=== PATIENT | male | born 1945 | race Caucasian/White ===

== ENCOUNTER → 2017-10-25 | Outpatient (CLI) | payer MEDICARE, OTHER | END | disposition home or self-care (01) | LOC: PCVCIMAG 16:08 | DX: G45.9 Transient cerebral ischemic attack, unspecified (principal); I35.0 Nonrheumatic aortic (valve) stenosis; H53.9 Unspecified visual disturbance | CPT/HCPCS: 93880; C8929 ==

== ENCOUNTER → 2017-12-02 | Outpatient (CLI) | payer MEDICARE, OTHER ==
[~2017-12-02] MED LIST: LIDOCAINE 1% Multi-Dose 50 ML VIAL. ONE
--- NOTE | 2017-12-14 08:43 | PCVCINTER ---
APPROVED REPORT Patient Location: Out-Patient Room #: 4 Stress Nurse: Procedure: Insertion of a [employer] bio monitor implantable loop recorder Indications: 71-year-old male patient with cryptic strokes and TIAs with risk factors for atrial fibrillation. Spray Cementer: Norman Story MD [facility] Device: Biotronik bio monitor 2AF serial #[id number] Brief description of procedure: After informed consent was obtained the patient brought to the cardiac catheterization prep and hold. The chest was prepped and draped in usual sterile manner. Utilizing 1% lidocaine with epinephrine the region of incision and device placement was instilled. Using a 11 blade a small incision was then made along the lines of Gisel. Utilizing both sharp and blunt dissection a pocket was developed. The implantable loop recorder was then inserted. Standard technique without complications and difficulties. The site was then closed with 2 simple interrupted nonabsorbable sutures. The skin was closed with 30 absorbable suture in a subcuticular technique. Steri-Strips 4 x 4 OpSite was then utilized. Patient tolerated procedure well there was no blood loss. Conclusion 1. Successful insertion of an implantable loop recorder percutaneously utilizing local anesthetic
== END ==
LOC: PCVCINTER 14:25
PROVIDERS: ATTEND Internal Medicine
DX: Z45.09 Encounter for adjustment and management of other cardiac device (principal); I35.0 Nonrheumatic aortic (valve) stenosis; Z86.73 Personal history of transient ischemic attack (TIA), and cerebral infarction without residual deficits
CPT/HCPCS: 33282; C1764

== ENCOUNTER → 2018-11-22 | Outpatient (CLI) | payer MEDICARE, OTHER | END | disposition home or self-care (01) | LOC: PCVCCLINIC 15:26 | PROVIDERS: ATTEND Internal Medicine | DX: G45.9 Transient cerebral ischemic attack, unspecified (principal); E78.5 Hyperlipidemia, unspecified; K21.9 Gastro-esophageal reflux disease without esophagitis; E78.00 Pure hypercholesterolemia, unspecified; Z79.82 Long term (current) use of aspirin; Z87.891 Personal history of nicotine dependence; Z88.8 Allergy status to other drugs, medicaments and biological substances | CPT/HCPCS: 36415; 80061; 93005; G0463 ==